=== PATIENT | male | born 1980 | race Caucasian/White ===

== ENCOUNTER 2023-07-15 12:10 | Emergency (ER) | payer MEDICAID ==
[~2023-07-15] VITALS: Ht 160 cm; Wt 60.0 kg
[2023-07-15 12:51] VITALS: O2SAT 100
[2023-07-15] MEDS ORDERED: CEPH500C2 MT (14:24)
[2023-07-15 16:18] VITALS: BP 145/77; PULSE 88; RESP 16; TEMP 98.9
== END 2023-07-15 16:19 | disposition home or self-care (01) ==
LOC: ER 12:48
DX: L03.116 Cellulitis of left lower limb (principal); E11.9 Type 2 diabetes mellitus without complications; Z98.890 Other specified postprocedural states
CPT/HCPCS: 93971; 99284; Z7610